=== PATIENT | female | born 1990 | race Caucasian/White ===

== ENCOUNTER → 2017-01-02 | Outpatient (CLI) | payer SELFPAY ==
--- NOTE | ~2017-01-02 | NDGEN ---
PATIENT'S NAME: ANTOINE MILAN I [facility] AGE: 26 Y [address] ROOM: [place] [address] LOCATION: [facility] ADMIT DATE: 01/02/2017 [facility] DISCHARGE DATE: FAMILY PHYSICIAN: PHYSICIAN, NO ATTENDING PHYSICIAN: BENIGNO SHEFFIELD PROCEDURE: ELECTROENCEPHALOGRAM DATE OF PROCEDURE: 01/02/2017 TEST: TECH: CLINICAL DIAGNOSIS: DURATION OF EE minutes. REASON FOR EEG: Seizures. CLINICAL HISTORY: The patient is a 26-year-old female, who has history of migraines and feeling of karen vu for 7 years, these episodes of karen vu in October and December had turned into tonic-clonic episodes. EEG FINDINGS: The patient was awake for 50% to 60% of the EEG, asleep for remaining. During the awake portions of EEG, a 10 to 11 hertz background is seen in the posterior head regions which is symmetrical with rhythmical waxing and waning. Activation procedures included photic stimulation between 3 to 30 hertz. During hyperventilation which was done for 3 minutes was somewhat asymmetrical with slowing in the left temporal regions was appreciated. During the sleep phase, vertex waves were seen in central head regions. CLASSIFICATION: Abnormal 1, awake, asleep 10/20 scalp electrodes: 1. Intermittent, slow, regional, left temporal. IMPRESSION: This EEG shows evidence of underlying cortical dysfunction in the left temporal regions, this asymmetry is highlighted primarily during the hyperventilation. No definite epileptiform discharges or EEG seizures were seen during this recording. Please correlate clinically. MD SYLVIE SUN/modl PATIENT'S NAME: ANTOINE MILAN [facility] AGE: 26 Y [address] ROOM: [place] [address] LOCATION: [facility] ADMIT DATE: 01/02/2017 Neurodiagnostics DISCHARGE DATE: FAMILY PHYSICIAN: PHYSICIAN, NO ATTENDING PHYSICIAN: BENIGNO SHEFFIELD /[id number] dtt: 01/09/17 0651 , RAMIREZ YOUNG dtd: 01/03/17 0642
== END | disposition disaster alternative care site (69) ==
LOC: GNEU 11:00
DX: R56.9 Unspecified convulsions (principal); G93.89 Other specified disorders of brain; R06.4 Hyperventilation